=== PATIENT | female | born 1965 | race Caucasian/White ===

== ENCOUNTER → 2016-03-28 | Outpatient (CLI) | payer OTHER ==
[~2016-03-28] MED LIST: ABILIFY 10MG TA10 MG PO; ABILIFY5 MG PO; AMBIEN 10MG10 MG PO; AMOXICILLIN125 MG PO; ANUSOL HC25 MG/SUPP RC; BYSTOLIC10 MG PO; CELEBREX 200MG200 MG PO; CORGARD20 MG PO; EFFEXOR XR 150150 MG PO; EFFEXOR25 M1 PO; FLONASEALLERGY NS; GLUCOPHAGE500 MG/TAB PO; HYDROCODONE BIT1 TA3 PO; HYZAAR 12.5 MG-1 TAB PO; LAMICTAL 100MG100 MG PO; LEVAQUIN 250MG250 MG PO; LEVAQUIN500 MG PO; LIPITOR 40MG TA40 MG PO; LORTAB 7.5/5001 TAB PO; METRONIDAZOLE500 MG PO; NORCO 325 MG-51 TAB PO; NUVIGIL250 MG PO; PAMELOR50 MG PO; PHENERGAN 25 TA25 MG PO; RELION VEN0.09 MG/Ac IH; RITALIN 20M20 MG/TAB PO; SYNTHROID 0.0.025 MG PO; TOPAKAX; TOPAMAX 100MG100 M1 PO; TOPAMAX100 MG PO; TOPAMAX50 MG PO; VICODIN 5/5001 UDTAB PO; VIIBRYD40 MG PO; WELLBUTRIN SR100 M1 PO; WELLBUTRIN XL300 M1 PO; XYZAL5 MG PO; ZOFRAN ODT4 MG PO
== END ==
LOC: COL.RAD 03-26 12:30
DX: R26.9 Unspecified abnormalities of gait and mobility (principal); Z91.81 History of falling
CPT/HCPCS: A9585

== ENCOUNTER 2016-04-26 21:57 | Emergency (ER) | payer OTHER ==
[~2016-04-26] VITALS: Ht 167.6 cm; Wt 165.9 kg
[~2016-04-26 21:57] MED LIST changes: -CORGARD20 MG PO; -FLONASEALLERGY NS; -GLUCOPHAGE500 MG/TAB PO
[2016-04-26 22:01] VITALS: TEMP 98.3
[2016-04-26 22:31] LABS: BASO % 0.5 % (0.0-2.0); EOS # 0.3 (0.0-0.7); GRAN # 5.8 (1.4-6.5); GRAN % 67.5 % (42.2-75.2); HEMATOCRIT 38.6 % (37.0-47.0); HEMOGLOBIN 12.5 g/dl (12.5-16.0); LYMPH # 1.7 (1.2-3.4); MEAN CELL VOLUME 94 fl (80.0-100.0); MEAN CORPUSCULAR HEMOGLOBIN 31 pg (27.0-31.0); MEAN CORPUSCULAR HGB CONC 32 g/dl (33.0-37.0); MEAN PLATELET VOLUME 9.3 fl (7.4-10.4); MONO # 0.7 (0.1-0.6); MONO % 8.2 % (1.7-9.3); PLATELET COUNT 279 K/mm3 (130-400); REDCELL DISTRIBUTION WIDTH-CV 13.2 % (11.5-14.5); WHITE BLOOD COUNT 8.5 K/mm3 (4.8-10.8)
[2016-04-26 22:44] LABS: ADJUSTED CALCIUM 9.1 mg/dL (8.4-10.2); ALANINE AMINOTRANSFERASE 45 U/L (9-52); ALBUMIN 4.1 gm/dL (3.5-5.0); ALKALINE PHOSPHATASE 146 U/L (50-136); ANION GAP 13 mmol/L (7-16); BILIRUBIN,TOTAL 0.5 mg/dL (0.0-1.0); BLOOD UREA NITROGEN 14 mg/dL (7-17); C-REACTIVE PROTEIN 1.3 mg/dL (0.0-0.9); CALCIUM 9.2 mg/dL (8.4-10.2); CARBON DIOXIDE 25 mmol/L (22-30); CHLORIDE 100 mmol/L (98-107); CREATININE, serum 0.78 mg/dL (0.52-1.25); GLUCOSE 157 mg/dL (74-106); LIPASE 97 U/L (23-300); POTASSIUM 3.6 mmol/L (3.4-5.0); SODIUM 138 mmol/L (137-145); TOTAL PROTEIN 7.4 gm/dL (6.4-8.2)
[2016-04-26 22:55] LABS: B-TYPE NATRIURETIC PEPTIDE 32 pg/mL (0-125)
[2016-04-26 22:58] LABS: TROPONIN-I < 0.012 ng/mL (0.000-0.034)
[2016-04-26] MEDS ORDERED: FLONASEALLERGY NS (23:14)
[2016-04-26] MEDS ORDERED: HYZAAR 12.5 MG-1 TAB PO (23:17)
[2016-04-26] MEDS ORDERED: CORGARD20 MG PO (23:20)
[2016-04-26] MEDS ORDERED: GLUCOPHAGE500 MG/TAB PO (23:21)
[2016-04-26 23:59] VITALS: BP 155/86; PULSE 96
== END 2016-04-27 00:16 | disposition home or self-care (01) ==
LOC: COL.ER 21:57
PROVIDERS: Emergency Medicine
DX: R07.9 Chest pain, unspecified (principal); R00.2 Palpitations; I10 Essential (primary) hypertension
CPT/HCPCS: J2060; J7030

== ENCOUNTER → 2016-06-27 | Outpatient (CLI) | payer OTHER ==
[~2016-06-27] MED LIST changes: +CORGARD20 MG PO; +FLONASEALLERGY NS; +GLUCOPHAGE500 MG/TAB PO
== END ==
LOC: COL.LAB 13:20
DX: Z01.89 Encounter for other specified special examinations (principal)

== ENCOUNTER → 2016-07-16 | Outpatient (CLI) | payer OTHER | LOC: COL.LAB 09:23 | DX: Z01.89 Encounter for other specified special examinations (principal) ==

== ENCOUNTER → 2016-07-16 | Outpatient (CLI) | payer OTHER | LOC: COL.RAD 07:19 | DX: M62.81 Muscle weakness (generalized) (principal); R25.1 Tremor, unspecified; M25.78 Osteophyte, vertebrae; M48.02 Spinal stenosis, cervical region; M46.82 Other specified inflammatory spondylopathies, cervical region ==

== ENCOUNTER → 2016-07-17 | Outpatient (CLI) | payer OTHER | LOC: COL.LAB 11:57 | DX: Z01.89 Encounter for other specified special examinations (principal) ==

== ENCOUNTER → 2016-08-18 | Outpatient (CLI) | payer OTHER | LOC: COL.RAD 08:16 | DX: R10.11 Right upper quadrant pain (principal); R11.0 Nausea | CPT/HCPCS: A9537; J2270 ==

== ENCOUNTER → 2016-09-04 | Outpatient (CLI) | payer OTHER | LOC: BHSO 14:05 | DX: F41.1 Generalized anxiety disorder (principal) ==

== ENCOUNTER → 2016-12-26 | Outpatient (CLI) | payer OTHER | LOC: BHSO 10:13 | DX: F41.1 Generalized anxiety disorder (principal) ==

== ENCOUNTER → 2017-03-27 | Outpatient (CLI) | payer OTHER | LOC: BHSO 13:13 | DX: F41.1 Generalized anxiety disorder (principal) | CPT/HCPCS: G0463 ==

== ENCOUNTER → 2017-07-28 | Outpatient (CLI) | payer OTHER | LOC: BHSO 15:09 | DX: F33.41 Major depressive disorder, recurrent, in partial remission (principal) | CPT/HCPCS: G0463 ==

== ENCOUNTER → 2017-09-24 | Outpatient (CLI) | payer OTHER | LOC: BHSO 14:48 | DX: F90.0 Attention-deficit hyperactivity disorder, predominantly inattentive type (principal) | CPT/HCPCS: G0463 ==

== ENCOUNTER 2017-10-15 14:00 | Outpatient (RCR) | payer OTHER | END 2017-10-21 | disposition home or self-care (01) | LOC: WSPT | DX: M25.512 Pain in left shoulder (principal); R53.1 Weakness; R26.89 Other abnormalities of gait and mobility ==

== ENCOUNTER 2017-11-03 15:16 | Outpatient (RCR) | payer OTHER | END 2017-11-03 15:45 | disposition home or self-care (01) | LOC: WSPT 15:16 | DX: M25.512 Pain in left shoulder (principal); M25.511 Pain in right shoulder; R29.898 Other symptoms and signs involving the musculoskeletal system; R26.89 Other abnormalities of gait and mobility ==

== ENCOUNTER → 2017-11-11 | Outpatient (CLI) | payer OTHER | LOC: BHSO 13:46 | DX: F33.41 Major depressive disorder, recurrent, in partial remission (principal) | CPT/HCPCS: G0463 ==

== ENCOUNTER → 2018-04-23 | Outpatient (CLI) | payer OTHER | LOC: BHSO 14:36 | DX: F90.0 Attention-deficit hyperactivity disorder, predominantly inattentive type (principal) | CPT/HCPCS: G0463 ==

== ENCOUNTER → 2018-05-12 | Outpatient (CLI) | payer OTHER | LOC: MC.RAD 07:24 | DX: Z12.31 Encounter for screening mammogram for malignant neoplasm of breast (principal) ==

== ENCOUNTER 2018-05-18 13:25 | Outpatient (RCR) | payer OTHER | END 2018-08-16 | disposition still patient (30) | LOC: WSC | DX: H81.13 Benign paroxysmal vertigo, bilateral (principal) ==

== ENCOUNTER → 2018-08-25 | Outpatient (CLI) | payer OTHER | LOC: BHSO 13:18 | DX: F33.42 Major depressive disorder, recurrent, in full remission (principal) | CPT/HCPCS: G0463 ==

== ENCOUNTER → 2019-02-24 | Outpatient (CLI) | payer OTHER | LOC: BHSO 13:56 | DX: F41.1 Generalized anxiety disorder (principal) | CPT/HCPCS: G0463 ==

== ENCOUNTER 2019-03-03 11:00 | Outpatient (RCR) | payer OTHER | END 2019-03-10 | disposition home or self-care (01) | LOC: WSC | DX: S76.091A Other specified injury of muscle, fascia and tendon of right hip, initial encounter (principal) ==

== ENCOUNTER → 2019-08-25 | Outpatient (CLI) | payer OTHER | LOC: BHSO 13:49 | DX: F33.42 Major depressive disorder, recurrent, in full remission (principal) | CPT/HCPCS: G0463 ==

== ENCOUNTER 2019-10-12 11:00 | Outpatient (RCR) | payer OTHER | END 2019-10-18 | disposition still patient (30) | LOC: WSC | DX: S76.011A Strain of muscle, fascia and tendon of right hip, initial encounter (principal); R42 Dizziness and giddiness ==

== ENCOUNTER 2020-01-11 11:00 | Outpatient (RCR) | payer OTHER | END 2020-01-23 | LOC: WSC | DX: S76.011A Strain of muscle, fascia and tendon of right hip, initial encounter (principal); R42 Dizziness and giddiness ==

== ENCOUNTER 2020-03-07 11:00 | Outpatient (RCR) | payer OTHER | END 2020-03-19 | disposition home or self-care (01) | LOC: WSC | DX: S76.011A Strain of muscle, fascia and tendon of right hip, initial encounter (principal); R42 Dizziness and giddiness; R53.1 Weakness; M25.562 Pain in left knee ==

== ENCOUNTER → 2020-07-30 | Outpatient (CLI) | payer OTHER | LOC: COL.RAD 09:15 | DX: N93.8 Other specified abnormal uterine and vaginal bleeding (principal) ==

== ENCOUNTER → 2020-10-01 | Outpatient (CLI) | payer OTHER | LOC: MC.RAD 14:22 | DX: Z12.31 Encounter for screening mammogram for malignant neoplasm of breast (principal) ==

== ENCOUNTER 2020-10-17 11:00 | Outpatient (RCR) | payer OTHER | END 2020-11-06 | LOC: PT.GENESIS | DX: M54.5 Low back pain (principal) ==

== ENCOUNTER 2021-01-30 11:00 | Outpatient (RCR) | payer OTHER | END 2021-02-05 | LOC: PT.GENESIS | DX: R26.9 Unspecified abnormalities of gait and mobility (principal); M19.90 Unspecified osteoarthritis, unspecified site ==

== ENCOUNTER 2021-03-06 11:30 | Outpatient (RCR) | payer OTHER | END 2021-03-15 | disposition home or self-care (01) | LOC: WSC | DX: R26.9 Unspecified abnormalities of gait and mobility (principal); M19.90 Unspecified osteoarthritis, unspecified site ==

== ENCOUNTER 2021-05-08 11:00 | Outpatient (RCR) | payer OTHER | END 2021-05-13 | disposition home or self-care (01) | LOC: PT.GENESIS | DX: R26.89 Other abnormalities of gait and mobility (principal); M19.90 Unspecified osteoarthritis, unspecified site ==

== ENCOUNTER 2021-06-12 11:00 | Outpatient (RCR) | payer OTHER | END 2021-06-13 | disposition home or self-care (01) | LOC: PT.GENESIS | DX: R53.81 Other malaise (principal); R26.9 Unspecified abnormalities of gait and mobility ==

== ENCOUNTER → 2021-06-17 | Outpatient (CLI) | payer OTHER | LOC: COL.RAD 06:32 | DX: R10.11 Right upper quadrant pain (principal); R11.0 Nausea; R11.2 Nausea with vomiting, unspecified; R10.13 Epigastric pain | CPT/HCPCS: A9537; J2270 ==

== ENCOUNTER 2021-06-19 11:10 | Outpatient (RCR) | payer OTHER | END 2021-07-13 | disposition home or self-care (01) | LOC: PT.GENESIS | DX: R53.81 Other malaise (principal); R26.9 Unspecified abnormalities of gait and mobility ==

== ENCOUNTER 2021-08-07 11:00 | Outpatient (RCR) | payer OTHER | END 2021-08-13 | disposition home or self-care (01) | LOC: PT.GENESIS | DX: M19.90 Unspecified osteoarthritis, unspecified site (principal) ==

== ENCOUNTER 2021-09-04 11:00 | Outpatient (RCR) | payer OTHER | END 2021-09-12 | disposition home or self-care (01) | LOC: PT.GENESIS | DX: R53.81 Other malaise (principal); R26.9 Unspecified abnormalities of gait and mobility ==

== ENCOUNTER → 2021-10-15 | Outpatient (CLI) | payer OTHER | LOC: MC.RAD 11:27 | DX: Z12.31 Encounter for screening mammogram for malignant neoplasm of breast (principal) ==

== ENCOUNTER 2022-07-08 10:00 | Outpatient (RCR) | payer MEDICARE, OTHER | END 2022-07-13 | disposition home or self-care (01) | LOC: PT.GENESIS | DX: M48.061 Spinal stenosis, lumbar region without neurogenic claudication (principal); R53.1 Weakness; Z72.3 Lack of physical exercise ==

== ENCOUNTER 2022-11-14 09:00 | Outpatient (RCR) | payer MEDICARE, OTHER | END 2022-12-13 | disposition home or self-care (01) | LOC: PT.GENESIS | DX: M48.061 Spinal stenosis, lumbar region without neurogenic claudication (principal); R26.89 Other abnormalities of gait and mobility ==

== ENCOUNTER 2023-09-11 10:00 | Outpatient (RCR) | payer MEDICARE, OTHER | END 2023-09-13 | disposition home or self-care (01) | LOC: PT.GENESIS | DX: M54.16 Radiculopathy, lumbar region (principal); R10.9 Unspecified abdominal pain; M79.621 Pain in right upper arm ==

== ENCOUNTER 2023-09-21 10:27 | Outpatient (RCR) | payer MEDICARE, OTHER ==
[~2023-09-21 10:27] MED LIST changes: -NUVIGIL250 MG PO; +PROVIGIL200 MG PO
[2023-09-25] MEDS ORDERED: GRALISE600 MG PO (14:15)
[2023-09-25] MEDS ORDERED: ULTRAM 50MG TAB50 MG PO (15:31)
[2023-09-25] MEDS ORDERED: DUO-KAPS1 CAP PO (15:32)
[2023-09-25] MEDS ORDERED: PROBIOTIC ACID1 EAC3 PO (15:33)
[2023-09-25] MEDS ORDERED: OSCAL 500 TAB500 MG PO (15:34)
[2023-09-27] MEDS ORDERED: ADVIL200 MG PO (09:59)
[2023-09-27] MEDS ORDERED: TYLENOL 500MG500 MG PO (09:59)
[2023-09-27] MEDS ORDERED: ZOFRAN ODT4 MG PO (10:57)
[2023-09-27] MEDS ORDERED: NORCO 325 MG-51 TAB PO (13:20)
[2023-09-28] MEDS ORDERED: COMPAZINE 5MG TA5 MG PO (13:57)
== END 2023-10-14 | disposition home or self-care (01) ==
LOC: PT.GENESIS
DX: M54.16 Radiculopathy, lumbar region (principal); R10.9 Unspecified abdominal pain; M79.601 Pain in right arm

== ENCOUNTER 2023-09-25 11:27 | Inpatient (IN) | payer MEDICARE, OTHER ==
[~2023-09-25] VITALS: Ht 167.6 cm; Wt 109.2 kg
[2023-09-25] VITALS (8 sets, daily range): BP systolic 111–140; BP diastolic 54–88; PULSE 60–82; TEMP 98.1–98.3
[2023-09-25] MEDS ORDERED: Morphine 4 MG/ML VIAL IV PRN ×2 (12:00→21:45)
[2023-09-25] MEDS ORDERED: NS 1,000 ML IV ONE (12:00)
[2023-09-25] MEDS ORDERED: Ondansetron 4 MG/2 ML VIAL IV ONE (12:15)
[2023-09-25 12:16] LABS: BASO % 0.4 % (0.0-2.0); EOS # 0.1 K/mm3 (0.0-0.7); EOS % 1.3 % (0.0-4.0); GRAN # 8.1 K/mm3 (1.4-6.5); GRAN % 74.3 % (42.2-75.2); HEMATOCRIT 44.8 % (37.0-47.0); HEMOGLOBIN 14.1 g/dl (12.5-16.0); LYMPH # 1.6 K/mm3 (1.2-3.4); MEAN CELL VOLUME 97 fl (80.0-100.0); MEAN CORPUSCULAR HEMOGLOBIN 31 pg (27-31); MEAN CORPUSCULAR HGB CONC 32 g/dl (33.0-37.0); MEAN PLATELET VOLUME 9.7 fl (7.4-10.4); MONO % 8.7 % (1.7-9.3); PLATELET COUNT 340 K/mm3 (130-400); RED BLOOD COUNT 4.62 M/mm3 (4.10-5.30); REDCELL DISTRIBUTION WIDTH-CV 13.7 % (11.5-14.5)
[2023-09-25 12:35] LABS: ALANINE AMINOTRANSFERASE 67 U/L (0-55); ALBUMIN 3.4 g/dL (3.5-5.0); ALKALINE PHOSPHATASE 199 U/L (40-150); ANION GAP 9 mmol/L (7-16); AST,SGOT 112 U/L (5-34); BILIRUBIN,TOTAL 0.5 mg/dL (0.2-1.2); BLOOD UREA NITROGEN 12 mg/dL (10-20); CALCIUM 9.9 mg/dL (8.4-10.2); CHLORIDE 103 mEq/L (98-107); CREATININE, serum 0.69 mg/dL (0.57-1.11); GLUCOSE 159 mg/dL (70-99); LIPASE 25 U/L (8-78); POTASSIUM 4.4 mEq/L (3.5-4.5); SODIUM 138 mEq/L (136-145); TOTAL PROTEIN 6.4 g/dl (6.2-8.1)
[2023-09-25 12:49] LABS: TROPONIN-I < 0.010 ng/mL (0.00-0.033)
[2023-09-25] MEDS ORDERED: Iohexol 300 - 100 ML VIAL IV ONE (12:59)
[2023-09-25] MEDS ORDERED: NS 100 ML IV SCH (13:00)
[2023-09-25] MEDS ORDERED: Morphine 4 MG/ML VIAL IV ONE (13:45)
[2023-09-25] MEDS ORDERED: GRALISE600 MG PO (14:15)
[2023-09-25 14:51] LABS: COLLECTION METHOD CLEAN CATCH
[2023-09-25 14:56] LABS: PH 6.5 (5.0-8.5); URINE APPEARANCE CLEAR (CLEAR/HAZY); URINE BLOOD NEGATIVE (NEGATIVE); URINE COLOR YELLOW (YELLOW); URINE GLUCOSE NEGATIVE (NEGATIVE); URINE KETONE NEGATIVE (NEGATIVE); URINE NITRATE NEGATIVE (NEGATIVE); URINE PROTEIN(semi-quant) NEGATIVE (NEGATIVE); URINE UROBILINOGEN 0.2 E.U/dL (0.2-1.0)
[2023-09-25] MEDS ORDERED: *Potassium Replacement Protocol MC SCH (15:15)
[2023-09-25] MEDS ORDERED: Acetaminophen 325 MG TAB PO PRN (15:15)
[2023-09-25] MEDS ORDERED: NS 1,000 ML IV SCH (15:15)
[2023-09-25] MEDS ORDERED: Ondansetron 4 MG/2 ML VIAL IV PRN ×3 (15:15→21:45)
[2023-09-25] MEDS ORDERED: Scopolamine 1 MG Delivered 3-Day PATCH TD SCH (15:25)
[2023-09-25] MEDS ORDERED: LR 1,000 ML IV SCH (15:30)
[2023-09-25] MEDS ORDERED: ULTRAM 50MG TAB50 MG PO (15:31)
[2023-09-25] MEDS ORDERED: DUO-KAPS1 CAP PO (15:32)
[2023-09-25] MEDS ORDERED: PROBIOTIC ACID1 EAC3 PO (15:33)
[2023-09-25] MEDS ORDERED: OSCAL 500 TAB500 MG PO (15:34)
[2023-09-25] MEDS ORDERED: fentaNYL 50 MCG/ML 2 ML VIAL ONE ×2 (16:02→17:14)
[2023-09-25] MEDS ORDERED: Midazolam 2 MG/2 ML VIAL ONE (16:02)
[2023-09-25] MEDS ORDERED: Succinylcholine PF 200 MG/10 ML SYRINGE IV ONE (16:02)
[2023-09-25] MEDS ORDERED: Rocuronium 50 MG/5 ML Multi-Dose VIAL ONE ×2 (16:02→18:40)
--- NOTE | 2023-09-25 16:13 | NUR ---
Pt admitted from ED. Arrived in room via WC. Pt oriented to room. A&Ox4. VSS. S1S2. Clear lungs on RA. Per ED nurse was wearing 4L via NC for comfort from pain, did not require once up in room. ABD is round, soft, non-tender to touch. Pt reported nausea and ABD pain 6/10 - cramping, achy, constant, worse with movement. Per Pt, first dose of morphine helped, but second did not. Palpable pulses in all extremities with 5/5 strength. IV in R AC is patent with LR running at titration for surgery. Admission, med rec and pre-op checklist complete. SCDs on bilaterally. No further needs. Pt transported down to OR in bed.
[2023-09-25] MEDS ORDERED: Topical Skin Adhesive 1 EACH (1 ML) TOP ONE ×2 (17:30→21:28)
[2023-09-25] MEDS ORDERED: Lidocaine PF 2% (20 MG/ML) 5 ML VIAL ONE (17:50)
[2023-09-25] MEDS ORDERED: Ondansetron 4 MG/2 ML VIAL ONE (17:51)
[2023-09-25] MEDS ORDERED: dexAMETHasone 10 MG/ML VIAL ONE (17:51)
[2023-09-25] MEDS ORDERED: Phenylephrine 10 MG/ML VIAL ONE (17:51)
[2023-09-25] MEDS ORDERED: fentaNYL 50 MCG/ML 1 ML SYRINGE/VIAL [PACU/SDC ONLY] IV PRN (20:00)
[2023-09-25] MEDS ORDERED: hydrALAZINE 20 MG/ML 1 ML VIAL IV PRN (20:00)
[2023-09-25] MEDS ORDERED: Morphine 2 MG/1 ML VIAL [PACU/SDC ONLY] IV PRN (20:00)
[2023-09-25] MEDS ORDERED: Ibuprofen 600 MG TAB PO PRN (21:45)
[2023-09-25] MEDS ORDERED: Naloxone 0.4 MG/ML VIAL IV PRN (21:45)
[2023-09-25] MEDS ORDERED: oxyCODONE 5 MG TAB PO PRN (21:45)
[2023-09-25] MEDS ORDERED: NS 10 ML IV ONE (21:53)
[2023-09-25] MEDS ORDERED: Hyoscyamine 0.125 MG Sublingual TAB SL ONE (22:00)
[2023-09-25] MEDS ORDERED: Acetaminophen 500 MG TAB PO SCH (22:31)
--- NOTE | 2023-09-25 22:45 | NUR ---
PT RETURNED TO ROOM 349 FROM PACU, ALERT AND ORIENTED, ON 2L O2 PER NC, IVF INFUSING PER PIV IN LAC, X5 ABD LAP SITES WITH SKIN GLUE CDI, JAQUEZ PATENT/SECURE WITH YELLOW URINE PRESENT. PT REPORTS FINGERS, HANDS AND FOREARMS NUMB RANDEE. PER REPORT FROM PACU, PT WAS POSITIONED IN OR WITH HEAD DOWN FOR SEVERAL HOURS, HANDS AND ARMS PLACED IN WARM BLANKET, CMS INTACT TO FINGERS. ALONZO RAINEY NOTIFIED. FAMILY AT BEDSIDE.
[2023-09-25] MEDS ORDERED: Gabapentin 300 MG CAP PO SCH (23:22)
[2023-09-26] VITALS (15 sets, daily range): BP systolic 100–136; BP diastolic 42–77; PULSE 65–88; TEMP 97.1–99.3
--- NOTE | 2023-09-26 02:10 | NUR ---
NOTIFIED REDD MCBRIDE OF PT CONTINUING TO REPORT NUMBNESS IN BOTH HANDS AND FINGERS, BOTH HANDS AND ARMS WRAPPED IN WARM BLANKET, ENCOURAGED PT TO MOVE ARMS, FINGERS AND HANDS WHEN AWAKE.
[2023-09-26 06:15] LABS: BASO % 0.4 % (0.0-2.0); EOS % 0.2 % (0.0-4.0); GRAN # 8.8 K/mm3 (1.4-6.5); GRAN % 77.9 % (42.2-75.2); HEMOGLOBIN 12.4 g/dl (12.5-16.0); LYMPH # 1.1 K/mm3 (1.2-3.4); LYMPH % 10.1 % (20.0-51.0); MEAN CELL VOLUME 94 fl (80.0-100.0); MEAN CORPUSCULAR HEMOGLOBIN 31 pg (27-31); MEAN CORPUSCULAR HGB CONC 33 g/dl (33.0-37.0); MEAN PLATELET VOLUME 9.8 fl (7.4-10.4); MONO # 1.2 K/mm3 (0.1-0.6); PLATELET COUNT 291 K/mm3 (130-400); RED BLOOD COUNT 4.06 M/mm3 (4.10-5.30); REDCELL DISTRIBUTION WIDTH-CV 13.7 % (11.5-14.5)
[2023-09-26 06:34] LABS: ALBUMIN 2.7 g/dL (3.5-5.0); CALCIUM 9.1 mg/dL (8.4-10.2); CREATININE, serum 0.73 mg/dL (0.57-1.11); MAGNESIUM 1.9 mg/dL (1.6-2.6); PHOSPHOROUS 4.8 mg/dL (2.3-4.7); POTASSIUM 4.3 mEq/L (3.5-4.5)
[2023-09-26] MEDS ORDERED: Modafinil 100 MG TAB PO SCH (09:00)
[2023-09-26] MEDS ORDERED: Fluticasone Nasal 50 MCG/Spray 16 GM BOTTLE NS SCH (09:00)
[2023-09-26] MEDS ORDERED: buPROPion SR (12-HR) 100 MG TAB PO SCH (09:00)
--- NOTE | 2023-09-26 09:45 | NUR ---
Patient resting in bed, on the phone. has rounded, awaiting Dr. Albright to see patient. Patient main complaint of pain is a headache, reports due to lack of caffiene. IVF as ordered. Mcrae to DD. Abdomen soft, bowels audible. Robotic lap site edges well aprroximated. Scds Ble. Will monitor
--- NOTE | 2023-09-26 11:39 | NUR ---
Data: Patient accepted spiritual care visit offered during [employer] rounds. Patient is member of [email or web address] in [place], [place]. She is certain is is on the prayer list. Assessment: Patient desired prayer. Plan of Care: [employer] provided supportive listening and prayer. Patient thanked [employer]uer for the visit. Chaplains will remain available as needed/requested while Patient is admitted to this hospital.
--- NOTE | 2023-09-26 12:03 | NUR ---
OSMAR met with patient and Blayne to complete initial assessment for discharge planning. Patient verified that they live in [place], she sees Dr. Hudson as her PCP and she uses [facility]. Patient states she uses a CPAP, shower chair and grab bars. Patient denied having a DPOA but consented to completing one while here. Patient completed a DPOA naming her Blayne ([phone]) snd her daughter as alternate. Signature witnessed by this OSMAR and orienting OSMAR Kaur. Copy of DPOA placed on chart, original and copies provided to patient. Blayne asked to complete a DPOA as well which was completed and witnessed by this SW and orienting OSMAR Kaur. Copies provided to him. Patient's plam is to return home. Discharge plan: Home
--- NOTE | 2023-09-26 13:46 | NUR ---
Patient spouse visitied. He has gone home. has rounded, plan of care reviewed. Patient tolerating progressed diet of clear liquids. Denies nausea. Pain improved. Mcrae DC & patient tolerated well. Patient independent with Hygiene, supplies provided. Dressed in home clothing per request. We ammbulated halls and she did well. She reports numbness in hands improving. Will monitor
--- NOTE | 2023-09-26 14:17 | NUR ---
Patient sitting at edge of bed drinking broth. Requesting pain medication, report pain increased with the increase in activity. Roxicodone for pain as ordered. 06/23. Will monitor
--- NOTE | 2023-09-26 18:28 | NUR ---
Patient ambulated the halls again,Independent in room, spouse at bedside. She continues to tolerate liquids, denies nausea. No bowel activity yet, denies passing flatus. Increased pain with activity. Again requesting medication for pain. Roxicodone as ordered. Int. Will report off to nightnurse
--- NOTE | 2023-09-26 20:43 | NUR ---
Patient complained that she's not feeling very good, VSS, checked her blood sugar and it was 59mg/dl, offered apple juice and tolerated them, after 15minutes blood sugar was 78mg/dl, called Jermaine, the PA and made him aware about this, received an order for D51/2 NS at 75cc/hr, will closely monitor.
[2023-09-26] MEDS ORDERED: D5 1/2 NS 1,000 ML IV SCH (21:45)
--- NOTE | 2023-09-26 22:15 | NUR ---
Patient assessed at this time, see shift assessment, still with IV infusing well on left hand, reports she's not passing gas yet, BS still hypoactive, PS at 4/10, was medicated earlier with oxycodone, reports nausea, medicated with zofran, denies further needs, call light and personal items within reach, will continue to monitor.
[2023-09-27] VITALS (12 sets, daily range): BP systolic 100–142; BP diastolic 74–87; PULSE 76–89; TEMP 97.5–98.5
[2023-09-27 05:59] LABS: BASO % 0.3 % (0.0-2.0); EOS # 0.3 K/mm3 (0.0-0.7); EOS % 3.6 % (0.0-4.0); GRAN # 4.5 K/mm3 (1.4-6.5); GRAN % 64.5 % (42.2-75.2); HEMATOCRIT 37.3 % (37.0-47.0); HEMOGLOBIN 12.2 g/dl (12.5-16.0); LYMPH # 1.1 K/mm3 (1.2-3.4); MEAN CELL VOLUME 96 fl (80.0-100.0); MEAN CORPUSCULAR HEMOGLOBIN 31 pg (27-31); MEAN CORPUSCULAR HGB CONC 33 g/dl (33.0-37.0); MEAN PLATELET VOLUME 9.9 fl (7.4-10.4); MONO # 1.1 K/mm3 (0.1-0.6); MONO % 16.3 % (1.7-9.3); PLATELET COUNT 276 K/mm3 (130-400); RED BLOOD COUNT 3.88 M/mm3 (4.10-5.30); REDCELL DISTRIBUTION WIDTH-CV 13.7 % (11.5-14.5)
[2023-09-27 06:16] LABS: ALBUMIN 2.5 g/dL (3.5-5.0); CALCIUM 8.7 mg/dL (8.4-10.2); CREATININE, serum 0.64 mg/dL (0.57-1.11); MAGNESIUM 1.9 mg/dL (1.6-2.6); POTASSIUM 3.9 mEq/L (3.5-4.5)
--- NOTE | 2023-09-27 06:40 | NUR ---
Patient reports relief from her numbness on her hands, also stated that she passed gas.
[2023-09-27] MEDS ORDERED: Ketorolac 15 MG/ML VIAL IV ONE (08:15)
--- NOTE | 2023-09-27 09:15 | NUR ---
Pt. sitting up in bed. Pt. is A&OX3, assessment complete. IV to lt. hand patent, IV fluids infusing per orders. Pt. reports pain at a 4 and requests IV toradol, oxycodone, gabapentin, and nausea meds. Will give per request. Educated the pt. on the importance of getting up and ambulating. Pt. voices understanding. Call light within reach.
[2023-09-27] MEDS ORDERED: ADVIL200 MG PO (09:59)
[2023-09-27] MEDS ORDERED: TYLENOL 500MG500 MG PO (09:59)
[2023-09-27] MEDS ORDERED: ZOFRAN ODT4 MG PO (10:57)
[2023-09-27] MEDS ORDERED: NORCO 325 MG-51 TAB PO (13:20)
[2023-09-27] MEDS ORDERED: Prochlorperazine 10 MG TAB PO ONE (16:15)
--- NOTE | 2023-09-27 17:20 | NUR ---
RECEIVED REPORT FROM FILIPPO THOMASON. PT REPORTING PAIN 6/10 IN ABD, SHARP. ADMINISTERED ROXICODONE AND TYLENOL. PT ALSO REPORTING SOME NAUSEA. PADDY ADMINISTERED COMPAZINE SHORTLY BEFORE. TALKED WITH PT ABOUT GETTING UP TO WALK TO GET HER BOWEL MOVING AND POSSIBLY WORKING ON GETTING AN ORDER FOR PO PHENERGAN IF NAUSEA CONTINUES. CALL LIGHT IN REACH.
[2023-09-27] MEDS ORDERED: Acetaminophen 500 MG TAB PO SCH (18:00)
--- NOTE | 2023-09-27 21:11 | NUR ---
Patient assessed at this time, see shift assessment, still complains of nausea, IV zofran given as ordered PRN, reports pain as well with PS of 4.5/10, medicated with oxycodone per request, discussed about the importance of ambulation, not agreeable at this time, stated that she had walked several times today, will replace potassium as per protocol, denies further needs, call light and personal items within reach, will continue to monitor.
[2023-09-27] MEDS ORDERED: Potassium Chloride 100 ML IV SCH (21:30)
[2023-09-27] MEDS ORDERED: *Potassium Replacement Protocol MC SCH (21:30)
[2023-09-28] VITALS (8 sets, daily range): BP systolic 127–154; BP diastolic 84–94; PULSE 83–88; TEMP 97.6–98.2
--- NOTE | 2023-09-28 00:06 | NUR ---
Patient still complaining of nausea, called Jermaine, the PA and informed him about this, received an order for one dose compazine 2.5mg IV.
--- NOTE | 2023-09-28 05:55 | NUR ---
Patient complained of nausea, called Jermaine again, received an order for compazine IV, denies further needs.
[2023-09-28 07:04] LABS: BASO % 0.3 % (0.0-2.0); EOS % 0.6 % (0.0-4.0); GRAN # 4.3 K/mm3 (1.4-6.5); GRAN % 66.6 % (42.2-75.2); HEMATOCRIT 39.9 % (37.0-47.0); HEMOGLOBIN 12.9 g/dl (12.5-16.0); LYMPH # 1.1 K/mm3 (1.2-3.4); LYMPH % 16.7 % (20.0-51.0); MEAN CELL VOLUME 93 fl (80.0-100.0); MEAN CORPUSCULAR HEMOGLOBIN 30 pg (27-31); MEAN CORPUSCULAR HGB CONC 32 g/dl (33.0-37.0); MEAN PLATELET VOLUME 9.9 fl (7.4-10.4); MONO % 15.5 % (1.7-9.3); PLATELET COUNT 317 K/mm3 (130-400); RED BLOOD COUNT 4.29 M/mm3 (4.10-5.30); REDCELL DISTRIBUTION WIDTH-CV 13.2 % (11.5-14.5)
[2023-09-28 07:32] LABS: ALBUMIN 2.6 g/dL (3.5-5.0); CALCIUM 9.2 mg/dL (8.4-10.2); CREATININE, serum 0.66 mg/dL (0.57-1.11); MAGNESIUM 1.8 mg/dL (1.6-2.6); PHOSPHOROUS 3.6 mg/dL (2.3-4.7); POTASSIUM 3.9 mEq/L (3.5-4.5)
--- NOTE | 2023-09-28 09:30 | NUR ---
Patient called out requesting morning medications. Reports pain. Medications as ordered. Does reports nausea improved. Independnet in room, will monitor.
--- NOTE | 2023-09-28 11:48 | NUR ---
SW met with patient and to review Medicare IM form. Patient agreeable to discharge when determined to be medically stable and signed form. Original on chart, copy to patient. Discharge plan: Home
[2023-09-28] MEDS ORDERED: COMPAZINE 5MG TA5 MG PO (13:57)
--- NOTE | 2023-09-28 14:35 | NUR ---
rounded and plan of care reviewed. Patient wanting to go home. INT DC. Patient reports pain and nausea improved. All discharge education given. Follow up appt reviewed. Med list reviewed & new scripts discussed with medication safety. Incisions cares and signs and symptoms to call phycisan reviewed. Patient wheeled out with all belongings, her spouse taking her home.
== END 2023-09-28 15:00 | disposition home or self-care (01) | DRG 337 ==
LOC: COL.ER 11:27 → SURG 13:32
PROVIDERS: Personal Emergency Response Attendant; Surgery; ADMIT Internal Medicine
PROC: 0DN84ZZ Release Small Intestine, Percutaneous Endoscopic Approach (ICD-10-PCS; principal; 2023-09-25 16:30)
DX: K56.50 Intestinal adhesions [bands], unspecified as to partial versus complete obstruction (principal); E03.9 Hypothyroidism, unspecified; F32.A Depression, unspecified
CPT/HCPCS: A4314; A9284; J0690; J0780; J1100; J1650; J1885; J2250; J2270; J2371; J2405; J2704; J3010; J3480; J7030; J7120; Q9967

== ENCOUNTER 2024-02-09 10:30 | Outpatient (RCR) | payer MEDICARE, OTHER ==
[~2024-02-09 10:30] MED LIST changes: +ADVIL200 MG PO; +COMPAZINE 5MG TA5 MG PO; +DUO-KAPS1 CAP PO; +GRALISE600 MG PO; +OSCAL 500 TAB500 MG PO; +PROBIOTIC ACID1 EAC3 PO; +TYLENOL 500MG500 MG PO; +ULTRAM 50MG TAB50 MG PO
== END 2024-02-13 | disposition home or self-care (01) ==
LOC: PT.GENESIS
DX: M54.16 Radiculopathy, lumbar region (principal); M17.11 Unilateral primary osteoarthritis, right knee; R10.9 Unspecified abdominal pain; Z98.890 Other specified postprocedural states